=== PATIENT | male | born 1995 | race Caucasian/White ===

== ENCOUNTER 2018-05-11 10:26 | Emergency (ER) | payer OTHER ==
[~2018-05-11] VITALS: Ht 177.8 cm; Wt 81.6 kg
--- NOTE | 2018-05-11 10:26 | NUR ---
PT BIBA BLS TO BED 8
[2018-05-11 10:29] VITALS: BP 118/80
[2018-05-11 10:35] VITALS: BP 118/80
--- NOTE | 2018-05-11 10:35 | NUR ---
22Y/M BROUGHT IN BY EMS AND [place] [employer] OFFICER ASIA, PT WALKING NAKED, HYPERSEXUAL(MASTURBATING, SOLICITING FELATIO) THROUGH [facility] IN [place]. ADMITS TO LSD USE LAST NIGHT, NO INJURY NOTED, PT IS AAOX4, VSS AT THIS TIME, BED DOWN, BEDRAIL UP X 1, ER MD AWARE AND NOTIFIED OF PT STATUS. PMH; POSSIBLE PSYCH RX; ADDERALL
[2018-05-11 11:30] LABS: HEMATOCRIT 47.7 % (36-52); HEMOGLOBIN 15.7 g/dL (12.0-18.0); MEAN CORPUSCULAR HEMOGLOBIN 31 pg (27-31); MEAN CORPUSCULAR HGB CONC 33 g/dL (33-37); MEAN CORPUSCULAR VOLUME 92.9 fL (80-94); PLATELET COUNT (AUTO) 240 K/uL (140-450); RED BLOOD CELL COUNT(AUTO) 5.14 MIL/uL (4.20-6.10); RED CELL DISTRIBUTION WIDTH 13.8 % (11.6-13.7); WHITE BLOOD COUNT (AUTO) 10.4 K/uL (4.8-10.8)
[2018-05-11 11:35] LABS: ANION GAP 17.1 (8-16); CARBON DIOXIDE 25.4 mmol/L (21-32); CHLORIDE 104 mmol/L (98-107); CREATININE 1.1 mg/dL (0.7-1.3); GFR ARICAN-AMERICAN 108 mL/min (>90); GLUCOSE 104 mg/dL (74-106); POTASSIUM 4.5 mmol/L (3.5-5.1); SODIUM SERUM 142 mmol/L (136-145); UREA NITROGEN, BLOOD 12 mg/dL (7-18)
[2018-05-11 11:41] LABS: ALBUMIN 4.1 g/dL (3.4-5.0); ASPARTATE AMINOTRANSFERASE 51 U/L (15-37); SALICYLATE < 2.8 mg/dL (2.8-20.0); TOTAL BILIRUBIN 0.3 mg/dL (0.0-1.0)
[2018-05-11 11:42] LABS: ACETAMINOPHEN < 0.5 ug/ml (10-30)
[2018-05-11 11:47] LABS: BASOPHILS % (MANUAL) 0 % (0-2); EOSINOPHILS % (MANUAL) 0 % (0-4); LYMPHOCYTES % (MANUAL) 8 % (20-46); MONOCYTES % (MANUAL) 7 % (5-12)
[2018-05-11 12:08] LABS: BARBITURATE, URINE NEG. ng/ml (NEG <=200); BENZODIAZEPINE, URINE NEG. ng/mL (NEG <=200); CANNABINOID, URINE POS. ng/mL (NEG <=50); COCAINE, URINE NEG. ng/mL (NEG <=300); OPIATE, URINE NEG. ng/mL (NEG <=2000); PHENCYCLIDINE SCREEN,URINE NEG. ng/mL (NEG <=25)
--- NOTE | 2018-05-11 12:25 | NUR ---
Patient discharged with v/s stable. Written and verbal after care instructions given and explained. Patient verbalized understanding. Ambulatory with steady gait. All questions addressed prior to discharge. Advised to follow up with PMD. LEFT WITH PD
== END 2018-05-11 12:25 | disposition home or self-care (01) ==
LOC: MED 10:26
DX: F19.10 Other psychoactive substance abuse, uncomplicated (principal)
CPT/HCPCS: 36415; 80053; 80305; 85025; 99283; G0480; G0482; 99284